=== PATIENT | female | born 2000 | race African-American/Black ===

== ENCOUNTER 2023-02-17 19:00 | Inpatient (IN) | payer OTHER ==
[~2023-02-17] VITALS: Ht 162.6 cm; Wt 63.8 kg
[2023-02-17] MEDS ORDERED: NS 1,000 ML IV ONE ×2 (22:35)
[2023-02-17 22:57] LABS: BASO # 0.1 10^3/uL (0.0-0.2); BASO % 0.6 % (0.0-1.0); EOS # 0.4 10^3/uL (0.0-0.5); EOS % 5.2 % (0.0-3.0); HEMOGLOBIN 12.3 g/dl (12.0-15.5); LYMPH % 38.1 % (24.0-44.0); MEAN CORPUSCULAR HEMOGLOBIN 27.8 pg (27.0-33.0); MEAN CORPUSCULAR HGB CONC 31.5 g/dl (32.0-36.5); MONO # 0.5 10^3/uL (0.0-0.8); MONO % 6.6 % (2.0-8.0); NEUTROPHILS # 3.8 10^3/uL (1.5-8.5); NEUTROPHILS % 49.1 % (36.0-66.0); PLATELET COUNT, AUTOMATED 228 10^3/uL (150-450); RED BLOOD COUNT 4.43 10^6/uL (4.00-5.40); WHITE BLOOD COUNT 7.8 10^3/uL (4.0-10.0)
[2023-02-17 23:20] LABS: LIPASE 28 U/L (12-53)
[2023-02-17 23:53] LABS: ALBUMIN 3.7 G/DL (3.2-5.2); ALKALINE PHOSPHATASE 78 U/L (46-116); ALT/SGPT 393 U/L (7.0-40); AST/SGOT 1287 U/L (<34); BILIRUBIN,DIRECT 0.1 MG/DL (<0.4); BILIRUBIN,TOTAL 0.4 MG/DL (0.3-1.2); BLOOD UREA NITROGEN 14 MG/DL (9-23); CALCIUM LEVEL 9.1 MG/DL (8.5-10.1); CARBON DIOXIDE LEVEL 31 MMOL/L (20-31); CHLORIDE LEVEL 105 MMOL/L (98-107); CK-MB VALUE MASS 17.7 NG/ML (<3.6); CPK CREATINE PHOSPHOKINASE > 39000 U/L (34-145); CREATININE FOR GFR 0.94 MG/DL (0.55-1.30); GLOMERULAR FILTRATION RATE > 60.0 (>60); GLUCOSE, FASTING 82 MG/DL (60-100); POTASSIUM SERUM 4.2 MMOL/L (3.5-5.1); SODIUM LEVEL 139 MMOL/L (136-145); TOTAL PROTEIN 6.7 G/DL (5.7-8.2)
[2023-02-18] MEDS ORDERED: HOME MED LIST COMPLETE! XX SCH (00:45)
[2023-02-18 01:18] LABS: RSV AMPLIFICATION NEGATIVE (NEGATIVE)
[2023-02-18] MEDS ORDERED: traMADol 50 MG TAB PO ONE (01:35)
[2023-02-18 03:15] VITALS: BP 114/72; TEMP 97.9; O2SAT 100
[2023-02-18] MEDS: HYDROMORPHONE HCL 0.5 MG/ 0.5 ML SYRINGE IV PRN ×5 (04:41→23:57)
[2023-02-18] MEDS: NS 1,000 ML IV SCH ×4 (04:42→23:55)
[2023-02-18 07:23] LABS: ALBUMIN 2.6 G/DL (3.2-5.2); ALKALINE PHOSPHATASE 69 U/L (46-116); ALT/SGPT 328 U/L (7.0-40); AST/SGOT 1010 U/L (<34); BILIRUBIN,TOTAL 0.3 MG/DL (0.3-1.2); BLOOD UREA NITROGEN 10 MG/DL (9-23); CALCIUM LEVEL 7.7 MG/DL (8.5-10.1); CARBON DIOXIDE LEVEL 23 MMOL/L (20-31); CHLORIDE LEVEL 110 MMOL/L (98-107); CREATININE FOR GFR 0.77 MG/DL (0.55-1.30); GLOMERULAR FILTRATION RATE > 60.0 (>60); GLUCOSE, FASTING 141 MG/DL (60-100); POTASSIUM SERUM 4.1 MMOL/L (3.5-5.1); SODIUM LEVEL 141 MMOL/L (136-145)
[2023-02-18 08:00] VITALS: BP 101/51; TEMP 98.6; O2SAT 100
[2023-02-18] MEDS ORDERED: oxyCODONE 5MG TAB PO ONE (11:30)
[2023-02-18 12:30] VITALS: BP 107/59; TEMP 98.7; O2SAT 99
[2023-02-18 16:30] VITALS: BP 112/56; TEMP 98.6; O2SAT 99
[2023-02-18] MEDS ORDERED: ONDANSETRON 4MG 2ML VIAL IV PRN (16:50)
[2023-02-18] MEDS: oxyCODONE 5MG TAB PO PRN (17:37)
[2023-02-18 20:00] VITALS: BP 130/65; TEMP 99; O2SAT 100
[2023-02-19] VITALS: BP 134/63; TEMP 98.8; O2SAT 100
[2023-02-19 06:00] VITALS: BP 119/73; TEMP 99.1; O2SAT 98
[2023-02-19] MEDS: NS 1,000 ML IV SCH ×3 (06:13→18:28)
[2023-02-19] MEDS: HYDROMORPHONE HCL 0.5 MG/ 0.5 ML SYRINGE IV PRN ×3 (06:25→18:21)
[2023-02-19] MEDS: oxyCODONE 5MG TAB PO PRN (07:23)
[2023-02-19 07:33] LABS: ALBUMIN 2.6 G/DL (3.2-5.2); ALKALINE PHOSPHATASE 53 U/L (46-116); ALT/SGPT 352 U/L (7.0-40); AST/SGOT 998 U/L (<34); BILIRUBIN,TOTAL 0.3 MG/DL (0.3-1.2); BLOOD UREA NITROGEN 8 MG/DL (9-23); CARBON DIOXIDE LEVEL 27 MMOL/L (20-31); CHLORIDE LEVEL 107 MMOL/L (98-107); CREATININE FOR GFR 0.88 MG/DL (0.55-1.30); GLOMERULAR FILTRATION RATE > 60.0 (>60); GLUCOSE, FASTING 87 MG/DL (60-100); POTASSIUM SERUM 4.2 MMOL/L (3.5-5.1); SODIUM LEVEL 139 MMOL/L (136-145); TOTAL PROTEIN 5.1 G/DL (5.7-8.2)
[2023-02-19 07:52] LABS: CPK CREATINE PHOSPHOKINASE > 39000 U/L (34-145)
[2023-02-19 08:00] VITALS: BP 123/71; TEMP 98.6; O2SAT 99
[2023-02-19] MEDS: ENOXAPARIN 40MG/0.4ML SYRINGE (J1650 PER 10MG) SC SCH (10:51)
[2023-02-19 16:00] VITALS: BP 133/82; TEMP 98.4; O2SAT 100
[2023-02-19] MEDS ORDERED: MOM 30ML SUSPENSION UDC PO ONE (17:00)
[2023-02-19] MEDS: DOCUSATE SODIUM 100MG CAPSULE PO SCH (17:34)
[2023-02-19 20:00] VITALS: BP 139/91; TEMP 99.2; O2SAT 100
[2023-02-19] MEDS: PERCOCET 5MG/325MG TAB PO PRN (21:39)
[2023-02-20 01:30] VITALS: O2SAT 99
[2023-02-20] MEDS: NS 1,000 ML IV SCH ×4 (01:33→21:00)
[2023-02-20] MEDS: oxyCODONE 5MG TAB PO PRN ×2 (01:33→09:04)
[2023-02-20] MEDS: PERCOCET 5MG/325MG TAB PO PRN ×3 (04:12→20:06)
[2023-02-20 06:00] VITALS: BP 132/68; TEMP 99.9; O2SAT 98
[2023-02-20 06:02] LABS: BASO % 0.6 % (0.0-1.0); EOS # 0.4 10^3/uL (0.0-0.5); EOS % 4.9 % (0.0-3.0); HEMATOCRIT 32.4 % (36.0-47.0); HEMOGLOBIN 10.4 g/dl (12.0-15.5); LYMPH # 1.5 10^3/uL (1.5-5.0); LYMPH % 20.6 % (24.0-44.0); MEAN CORPUSCULAR HEMOGLOBIN 27.7 pg (27.0-33.0); MEAN CORPUSCULAR HGB CONC 32.1 g/dl (32.0-36.5); MEAN CORPUSCULAR VOLUME 86.4 fl (80.0-96.0); MONO # 0.5 10^3/uL (0.0-0.8); MONO % 6.8 % (2.0-8.0); NEUTROPHILS # 4.7 10^3/uL (1.5-8.5); NEUTROPHILS % 66.8 % (36.0-66.0); PLATELET COUNT, AUTOMATED 189 10^3/uL (150-450); RED BLOOD COUNT 3.75 10^6/uL (4.00-5.40); WHITE BLOOD COUNT 7.1 10^3/uL (4.0-10.0)
[2023-02-20 06:22] LABS: BLOOD UREA NITROGEN 8 MG/DL (9-23); CALCIUM LEVEL 8.8 MG/DL (8.5-10.1); CARBON DIOXIDE LEVEL 29 MMOL/L (20-31); CHLORIDE LEVEL 106 MMOL/L (98-107); CREATININE FOR GFR 0.86 MG/DL (0.55-1.30); GLOMERULAR FILTRATION RATE > 60.0 (>60); GLUCOSE, FASTING 89 MG/DL (60-100); MAGNESIUM LEVEL 1.4 MG/DL (1.8-2.4); POTASSIUM SERUM 4.2 MMOL/L (3.5-5.1); SODIUM LEVEL 137 MMOL/L (136-145)
[2023-02-20 06:35] LABS: CPK CREATINE PHOSPHOKINASE > 39000 U/L (34-145)
[2023-02-20] MEDS ORDERED: NS 1,000 ML IV ONE (07:10)
[2023-02-20 08:00] VITALS: BP 128/74; TEMP 99.7; O2SAT 100
[2023-02-20] MEDS ORDERED: MAGNESIUM OXIDE 400MG TAB (MAG-OX) PO ONE (09:00)
[2023-02-20] MEDS: DOCUSATE SODIUM 100MG CAPSULE PO SCH (09:03)
[2023-02-20] MEDS: ENOXAPARIN 40MG/0.4ML SYRINGE (J1650 PER 10MG) SC SCH (09:05)
[2023-02-20 16:00] VITALS: BP 126/59; TEMP 98.8; O2SAT 98
[2023-02-20 20:00] VITALS: BP 139/86; TEMP 98.7; O2SAT 99
[2023-02-21] VITALS: BP 140/88; TEMP 98; O2SAT 98
[2023-02-21] MEDS: diphenhydrAMINE CREAM 30GM TOP PRN ×2 (00:12→15:38)
[2023-02-21] MEDS: NS 1,000 ML IV SCH ×4 (02:07→21:40)
[2023-02-21] MEDS: PERCOCET 5MG/325MG TAB PO PRN ×3 (02:10→16:56)
[2023-02-21] MEDS ORDERED: MIRALAX *UNIT DOSE* 17GM PACKET PO PRN (05:10)
[2023-02-21 06:41] LABS: HEMATOCRIT 30.6 % (36.0-47.0); HEMOGLOBIN 10.2 g/dl (12.0-15.5); MEAN CORPUSCULAR HEMOGLOBIN 28.9 pg (27.0-33.0); MEAN CORPUSCULAR HGB CONC 33.3 g/dl (32.0-36.5); MEAN CORPUSCULAR VOLUME 86.7 fl (80.0-96.0); PLATELET COUNT, AUTOMATED 185 10^3/uL (150-450); RED BLOOD COUNT 3.53 10^6/uL (4.00-5.40); WHITE BLOOD COUNT 5.4 10^3/uL (4.0-10.0)
[2023-02-21 07:10] LABS: ALBUMIN 2.6 G/DL (3.2-5.2); ALKALINE PHOSPHATASE 54 U/L (46-116); ALT/SGPT 293 U/L (7.0-40); AST/SGOT 530 U/L (<34); BILIRUBIN,TOTAL 0.3 MG/DL (0.3-1.2); BLOOD UREA NITROGEN 9 MG/DL (9-23); CALCIUM LEVEL 8.3 MG/DL (8.5-10.1); CARBON DIOXIDE LEVEL 27 MMOL/L (20-31); CHLORIDE LEVEL 109 MMOL/L (98-107); CREATININE FOR GFR 0.81 MG/DL (0.55-1.30); GLOMERULAR FILTRATION RATE > 60.0 (>60); GLUCOSE, FASTING 90 MG/DL (60-100); MAGNESIUM LEVEL 1.5 MG/DL (1.8-2.4); POTASSIUM SERUM 4.1 MMOL/L (3.5-5.1); SODIUM LEVEL 142 MMOL/L (136-145); TOTAL PROTEIN 5.1 G/DL (5.7-8.2)
[2023-02-21] MEDS: DOCUSATE SODIUM 100MG CAPSULE PO SCH (08:24)
[2023-02-21] MEDS: LACTULOSE 20GM/30ML SYRUP UDC PO PRN (08:24)
[2023-02-21] MEDS: ENOXAPARIN 40MG/0.4ML SYRINGE (J1650 PER 10MG) SC SCH (08:27)
[2023-02-21 09:00] VITALS: BP 151/81; TEMP 99.4; O2SAT 100
[2023-02-21] MEDS ORDERED: MAG SULF 1GM/100ML (MAG RUN) 1 GM in IV 1 EA IV ONE (15:00)
[2023-02-21 15:03] LABS: BLOOD UREA NITROGEN 8 MG/DL (9-23); CALCIUM LEVEL 9.1 MG/DL (8.5-10.1); CARBON DIOXIDE LEVEL 29 MMOL/L (20-31); CHLORIDE LEVEL 106 MMOL/L (98-107); CREATININE FOR GFR 0.82 MG/DL (0.55-1.30); GLOMERULAR FILTRATION RATE > 60.0 (>60); GLUCOSE, FASTING 93 MG/DL (60-100); SODIUM LEVEL 142 MMOL/L (136-145)
[2023-02-21 15:21] LABS: CPK CREATINE PHOSPHOKINASE 26005 U/L (34-145)
[2023-02-21 16:00] VITALS: BP 142/84; TEMP 98.6; O2SAT 100
[2023-02-21 20:00] VITALS: BP 137/89; TEMP 97.9; O2SAT 100
[2023-02-21] MEDS: MAGNESIUM OXIDE 400MG TAB (MAG-OX) PO SCH (21:39)
[2023-02-22] VITALS: BP 139/102; TEMP 98; O2SAT 100
[2023-02-22] MEDS: PERCOCET 5MG/325MG TAB PO PRN ×3 (00:09→17:16)
[2023-02-22] MEDS: NS 1,000 ML IV SCH ×3 (06:20→21:02)
[2023-02-22 07:11] LABS: BLOOD UREA NITROGEN 9 MG/DL (9-23); CALCIUM LEVEL 8.6 MG/DL (8.5-10.1); CARBON DIOXIDE LEVEL 28 MMOL/L (20-31); CHLORIDE LEVEL 107 MMOL/L (98-107); CREATININE FOR GFR 0.82 MG/DL (0.55-1.30); GLOMERULAR FILTRATION RATE > 60.0 (>60); GLUCOSE, FASTING 85 MG/DL (60-100); POTASSIUM SERUM 4.1 MMOL/L (3.5-5.1); SODIUM LEVEL 141 MMOL/L (136-145)
[2023-02-22 07:25] LABS: CPK CREATINE PHOSPHOKINASE 14752 U/L (34-145)
[2023-02-22 08:15] VITALS: BP 132/75; TEMP 98; O2SAT 100
[2023-02-22] MEDS: DOCUSATE SODIUM 100MG CAPSULE PO SCH (08:57)
[2023-02-22] MEDS: MAGNESIUM OXIDE 400MG TAB (MAG-OX) PO SCH ×2 (08:57→21:02)
[2023-02-22] MEDS: ENOXAPARIN 40MG/0.4ML SYRINGE (J1650 PER 10MG) SC SCH (08:58)
[2023-02-22 11:37] LABS: LDH LACTATE DEHYDROGENASE 285 U/L (120-246)
[2023-02-22 17:00] VITALS: BP 128/74; TEMP 98.7; O2SAT 100
[2023-02-22 20:00] VITALS: BP 141/90; TEMP 98.9; O2SAT 97
[2023-02-23] VITALS: BP 150/70; TEMP 98.3; O2SAT 100
[2023-02-23] MEDS: NS 1,000 ML IV SCH ×3 (05:03→18:23)
[2023-02-23 07:25] LABS: LDH LACTATE DEHYDROGENASE 297 U/L (120-246)
[2023-02-23 07:26] LABS: BLOOD UREA NITROGEN 9 MG/DL (9-23); CALCIUM LEVEL 8.8 MG/DL (8.5-10.1); CARBON DIOXIDE LEVEL 24 MMOL/L (20-31); CHLORIDE LEVEL 109 MMOL/L (98-107); GLOMERULAR FILTRATION RATE > 60.0 (>60); GLUCOSE, FASTING 82 MG/DL (60-100); POTASSIUM SERUM 4.2 MMOL/L (3.5-5.1); SODIUM LEVEL 141 MMOL/L (136-145)
[2023-02-23 07:37] LABS: CPK CREATINE PHOSPHOKINASE 7676 U/L (34-145)
[2023-02-23] MEDS: DOCUSATE SODIUM 100MG CAPSULE PO SCH (08:29)
[2023-02-23 08:30] VITALS: BP 159/86; TEMP 98.5; O2SAT 100
[2023-02-23] MEDS: PERCOCET 5MG/325MG TAB PO PRN (08:31)
[2023-02-23] MEDS: ENOXAPARIN 40MG/0.4ML SYRINGE (J1650 PER 10MG) SC SCH (08:31)
[2023-02-23] MEDS: MAGNESIUM OXIDE 400MG TAB (MAG-OX) PO SCH ×2 (08:31→21:56)
[2023-02-23] MEDS: LACTULOSE 20GM/30ML SYRUP UDC PO PRN (08:32)
[2023-02-23] MEDS ORDERED: MOM 30ML SUSPENSION UDC PO PRN (10:10)
[2023-02-23] MEDS ORDERED: SENOKOT S TAB PO PRN (10:10)
[2023-02-23] MEDS ORDERED: ACETAMINOPHEN TAB 650MG DOSE (2X325MG) PO PRN (10:10)
[2023-02-23] MEDS: CEPHALEXIN 500 MG CAP PO SCH ×4 (11:31→21:56)
[2023-02-23 11:32] VITALS: BP 129/90
[2023-02-23] MEDS: BACITRACIN OINTMENT 30GM TUBE TOP SCH ×2 (11:32→21:56)
[2023-02-23 11:36] VITALS: BP 129/90
[2023-02-23 15:45] VITALS: BP 135/90; TEMP 99; O2SAT 100
[2023-02-23] MEDS: LACTOBACILLUS ACIDOPHILUS CAP (BACID) PO SCH (18:22)
[2023-02-23 20:00] VITALS: BP 142/75; TEMP 98.2; O2SAT 97
[2023-02-24] MEDS: NS 1,000 ML IV SCH ×3 (01:57→11:40)
[2023-02-24 04:00] VITALS: BP 130/61; TEMP 98.3; O2SAT 99
[2023-02-24 07:09] LABS: BLOOD UREA NITROGEN 15 MG/DL (9-23); CALCIUM LEVEL 8.6 MG/DL (8.5-10.1); CARBON DIOXIDE LEVEL 25 MMOL/L (20-31); CHLORIDE LEVEL 108 MMOL/L (98-107); CPK CREATINE PHOSPHOKINASE 3453 U/L (34-145); CREATININE FOR GFR 0.83 MG/DL (0.55-1.30); GLOMERULAR FILTRATION RATE > 60.0 (>60); GLUCOSE, FASTING 89 MG/DL (60-100); POTASSIUM SERUM 4.1 MMOL/L (3.5-5.1); SODIUM LEVEL 141 MMOL/L (136-145)
[2023-02-24 07:45] VITALS: BP 132/82; TEMP 98.2; O2SAT 99
[2023-02-24] MEDS ORDERED: ACET1TAB55 PO (07:46)
[2023-02-24] MEDS ORDERED: SENN-52 PO (07:46)
[2023-02-24] MEDS ORDERED: OXYC-517 PO (07:46)
[2023-02-24] MEDS ORDERED: CEPH500C PO (07:46)
[2023-02-24] MEDS ORDERED: RISATAB3 PO (07:46)
[2023-02-24] MEDS: ENOXAPARIN 40MG/0.4ML SYRINGE (J1650 PER 10MG) SC SCH (08:46)
[2023-02-24] MEDS: MAGNESIUM OXIDE 400MG TAB (MAG-OX) PO SCH ×2 (08:47→20:47)
[2023-02-24] MEDS: CEPHALEXIN 500 MG CAP PO SCH ×4 (08:47→20:47)
[2023-02-24] MEDS: BACITRACIN OINTMENT 30GM TUBE TOP SCH ×2 (08:47→20:47)
[2023-02-24] MEDS: LACTOBACILLUS ACIDOPHILUS CAP (BACID) PO SCH ×2 (08:48→17:26)
[2023-02-24 16:00] VITALS: BP 143/72; TEMP 98.6; O2SAT 100
[2023-02-24 20:45] VITALS: BP 139/74; TEMP 98.4; O2SAT 99
[2023-02-24] MEDS: PERCOCET 5MG/325MG TAB PO PRN (20:47)
[2023-02-25] MEDS: NS 1,000 ML IV SCH ×2 (01:00→01:41)
[2023-02-25 05:35] LABS: BLOOD UREA NITROGEN 11 MG/DL (9-23); CALCIUM LEVEL 8.5 MG/DL (8.5-10.1); CARBON DIOXIDE LEVEL 26 MMOL/L (20-31); CHLORIDE LEVEL 109 MMOL/L (98-107); CREATININE FOR GFR 1.09 MG/DL (0.55-1.30); GLOMERULAR FILTRATION RATE > 60.0 (>60); GLUCOSE, FASTING 83 MG/DL (60-100); SODIUM LEVEL 143 MMOL/L (136-145)
[2023-02-25 05:50] LABS: CPK CREATINE PHOSPHOKINASE 1877 U/L (34-145)
[2023-02-25 06:30] VITALS: BP 122/67; TEMP 98.6; O2SAT 100
== END 2023-02-25 06:45 | disposition home or self-care (01) | DRG 563 ==
LOC: M ED 19:00 → M ED INP 02-18 02:20 → M PED 02-18 03:15
PROVIDERS: ADMIT Internal Medicine; ATTEND Internal Medicine
DX: S46.212A Strain of muscle, fascia and tendon of other parts of biceps, left arm, initial encounter (principal); M62.82 Rhabdomyolysis; I82.611 Acute embolism and thrombosis of superficial veins of right upper extremity; D64.89 Other specified anemias; R74.01 Elevation of levels of liver transaminase levels; Y93.B9 Activity, other involving muscle strengthening exercises; R31.9 Hematuria, unspecified; Z20.822 Contact with and (suspected) exposure to COVID-19

== ENCOUNTER 2023-04-23 01:33 | Emergency (ER) | payer OTHER ==
[~2023-04-23 01:33] MED LIST: ACET1TAB55 PO; CEPH500C PO; OXYC-517 PO; RISATAB3 PO; SENN-52 PO
[2023-04-23] MEDS ORDERED: NS 1,000 ML IV ONE ×2 (01:40→02:50)
[2023-04-23 01:51] VITALS: TEMP 97.7
[2023-04-23] MEDS ORDERED: MIDAZOLAM INJ 2MG/2ML VIAL IV STA ×2 (01:51→04:00)
[2023-04-23] MEDS ORDERED: MIDAZOLAM INJ 2MG/2ML VIAL As Ordered ONE (01:52)
[2023-04-23 01:55] LABS: VENOUS BASE EXCESS -7.3 (-2.0-2.0); VENOUS HCO3 19.8 MMOL/L (23.0-27.0); VENOUS O2 SATURATION 86.3 % (60.0-80.0); VENOUS PARTIAL PRESSURE CO2 45.6 mmHg (38.0-50.0); VENOUS PARTIAL PRESSURE O2 61.5 mmHg (30.0-50.0); VENOUS PH 7.255 UNITS (7.330-7.430); VENOUS STANDARD HCO3 18.4 MMOL/L; VENOUS TOTAL CO2 21.2 MMOL/L (24.0-28.0)
[2023-04-23 02:01] LABS: HEMOGLOBIN 12.4 g/dl (12.0-15.5); MEAN CORPUSCULAR HGB CONC 32.6 g/dl (32.0-36.5); MEAN CORPUSCULAR VOLUME 85.8 fl (80.0-96.0); PLATELET COUNT, AUTOMATED 254 10^3/uL (150-450); RED BLOOD COUNT 4.43 10^6/uL (4.00-5.40); WHITE BLOOD COUNT 11.8 10^3/uL (4.0-10.0)
[2023-04-23] MEDS ORDERED: ISOVUE-370 76% 100ML VIAL As Ordered ONE (02:12)
[2023-04-23 02:15] LABS: INR 1.08; PARTIAL THROMBOPLASTIN TIME 24.7 SECONDS (24.8-34.2); PROTHROMBIN TIME 13.7 SECONDS (12.5-14.5)
[2023-04-23 02:22] LABS: LIPASE 26 U/L (12-53)
[2023-04-23 02:24] LABS: ALKALINE PHOSPHATASE 64 U/L (46-116); ALT/SGPT 21 U/L (7.0-40); AMYLASE 146 U/L (30-118); AST/SGOT 29 U/L (<34); BILIRUBIN,DIRECT < 0.1 MG/DL (<0.4); BILIRUBIN,TOTAL 0.3 MG/DL (0.3-1.2); BLOOD UREA NITROGEN 9 MG/DL (9-23); CALCIUM LEVEL 8.8 MG/DL (8.5-10.1); CARBON DIOXIDE LEVEL 21 MMOL/L (20-31); CHLORIDE LEVEL 105 MMOL/L (98-107); CK-MB VALUE MASS < 1.0 NG/ML (<3.6); CPK CREATINE PHOSPHOKINASE 137 U/L (34-145); CREATININE FOR GFR 1.01 MG/DL (0.55-1.30); GLOMERULAR FILTRATION RATE > 60.0 (>60); GLUCOSE, FASTING 118 MG/DL (60-100); MB/CK RELATIVE INDEX 0.72 (< OR =4); POTASSIUM SERUM 3.1 MMOL/L (3.5-5.1); SODIUM LEVEL 138 MMOL/L (136-145); TOTAL PROTEIN 7.3 G/DL (5.7-8.2)
[2023-04-23 02:25] LABS: ATYPICAL LYMPH 1 % (0-5); BASOPHILS 1 % (0-1); EOSINOPHILS 10 % (0-3); LYMPHOCYTES 56 % (16-44); MONOCYTES 7 % (0-5); NEUTROPHILS 25 % (28-66)
[2023-04-23 02:27] LABS: ANISOCYTOSIS 1+; BURR CELLS 1+; OVALOCYTES 1+; PLATELET ESTIMATE NORMAL (NORMAL); POIKILOCYTOSIS 1+
[2023-04-23 02:34] LABS: ETHYL ALCOHOL (ETHANOL) 0.303 % (0.000-0.010)
[2023-04-23 04:01] VITALS: BP 119/81; O2SAT 100
== END 2023-04-23 04:08 | disposition short-term general hospital (02) ==
LOC: EDBD 01:33 → M ED 01:33
DX: I61.9 Nontraumatic intracerebral hemorrhage, unspecified (principal); S00.83XA Contusion of other part of head, initial encounter; W01.0XXA Fall on same level from slipping, tripping and stumbling without subsequent striking against object, initial encounter; F10.10 Alcohol abuse, uncomplicated; Y92.009 Unspecified place in unspecified non-institutional (private) residence as the place of occurrence of the external cause; Y93.89 Activity, other specified; Y99.9 Unspecified external cause status; Z79.1 Long term (current) use of non-steroidal anti-inflammatories (NSAID); Z79.891 Long term (current) use of opiate analgesic; Z79.899 Other long term (current) drug therapy
CPT/HCPCS: 70450; 70486; 71260; 72125; 80048; 80076; 82077; 82150; 82550; 82553; 82803; 83605; 83690; 84484; 85025; 85610; 85730; 86850; 86900; 86901; 93041; 94760; 96361; 96374; 96375; 99291; J2250; Q9967